=== PATIENT | male | born 1930 | race Two or more races ===

== ENCOUNTER 2016-06-30 13:16 | Inpatient (IN) | payer MEDICARE, OTHER ==
[~2016-06-30] VITALS: Ht 175.3 cm; Wt 63.5 kg
[2016-06-30] VITALS (8 sets, daily range): BP systolic 110–125; BP diastolic 50–73
[~2016-06-30 13:16] MED LIST: ASPIRIN81 MG ORAL; CARVEDILOL3.125 MG ORAL; FLOMAX0.4 MG ORAL; LOPRESSOR25 M1 ORAL; METOPROLOL TART25 MG ORAL; METOPROLOL TART25 MG PO; NITROFURANTOIN100 M2 ORAL; NITROGLYCERIN0.4 MG SL; SIMVASTATIN40 MG PO; SPIRIVA INHALE1 PUF1 INH; SYMBICORT 1601 PUFFS INH
[2016-06-30 13:59] LABS: BASOPHILS % (AUTO) 0.6 % (0.0-2.0); EOSINOPHILS % (AUTO) 1.1 % (0.0-3.0); LYMPHOCYTES % (AUTO) 14.8 % (20.0-45.0); MEAN CORPUSCULAR HEMOGLOBIN 32.5 PG (27.0-31.0); MEAN CORPUSCULAR HGB CONC 32.4 G/DL (32.0-36.0); MEAN CORPUSCULAR VOLUME 100 FL (80-99); MEAN PLATELET VOLUME 7.7 FL (6.5-10.1); MONOCYTES % (AUTO) 4.4 % (1.0-10.0); NEUTROPHILS % (AUTO) 79.1 % (45.0-75.0); PLATELET COUNT 224 K/UL (150-450); RED BLOOD COUNT 4.14 M/UL (4.70-6.10); RED CELL DISTRIBUTION WIDTH 12.8 % (11.6-14.8); WHITE BLOOD COUNT 11.4 K/UL (4.8-10.8)
[2016-06-30] MEDS ORDERED: Morphine Sulfate 2mg/ml Inj IVP ONE (14:15)
[2016-06-30 14:24] LABS: TROPONIN I < 0.30 ng/mL (<=0.30)
[2016-06-30 14:27] LABS: ALANINE AMINOTRANSFERASE 12 U/L (3-41); ANION GAP 16 (5-15); ASPARTATE AMINO TRANSFERASE 41 U/L (5-40); CALCIUM 9.9 mg/dL (8.6-10.2); CARBON DIOXIDE 26 mEQ/L (20-30); CHLORIDE 98 mEQ/L (98-107); CREATININE 1.8 mg/dL (0.7-1.2); HEMOLYSIS 2; SODIUM 140 mEQ/L (135-145); TOTAL PROTEIN 8.1 g/dL (6.6-8.7)
[2016-06-30 14:28] LABS: APPEARANCE,URINE SLIGHTLY CLOUDY; KETONES,URINE NEGATIVE (NEGATIVE); LEUKOCYTE ESTERASE ,URINE 3+ (NEGATIVE); NITRITE,URINE NEGATIVE (NEGATIVE); PH,URINE 7 (4.5-8.0); PROTEIN,URINE 2+ (NEGATIVE); UROBILINOGEN,URINE NORMAL MG/DL (0.0-1.0)
[2016-06-30 14:28] LABS: LIPASE 65 U/L (< 60)
[2016-06-30] MEDS ORDERED: Albuterol ud Inhalation HHN ONE (14:30)
[2016-06-30] MEDS ORDERED: Ipratropium 0.02% Inh Soln 2.5ml UD HHN ONE (14:30)
[2016-06-30 14:37] LABS: BACTERIA,URINE FEW /HPF; SQUAMOUS EPITHELIAL CELL,UR OCCASIONAL /LPF (NONE/OCC); WBC,URINE 30-40 /HPF (0 - 0)
[2016-06-30 14:38] LABS: CKMB 2.7 ng/mL (< 6.7)
[2016-06-30 14:56] LABS: REFLEX LACTIC ACID YES OR NO YES
[2016-06-30] MEDS ORDERED: NS 1000ml 1,900 ML IVLG ONE (15:00)
--- NOTE | 2016-06-30 16:04 | Diagnostic Imaging Report ---
Indication: Abdominal pain Technique: Spiral acquisitions obtained through the abdomen and pelvis. No oral contrast utilized, per emergency room physician request No IV contrast utilized, per referring physician request.. Multiplanar reconstructions were generated. Total dose length product 897 mGycm. CTDIvol(s) 17 mGy. Dose reduction achieved using automated exposure control Comparison: 09/14/2012 Findings: Lack of enteric contrast assessment of the GI tract. There is mild thickening of the wall of the descending and sigmoid colon as well as of the rectum. There is diverticulosis of the ascending colon predominantly. No evidence of diverticulitis. Appendix was visualized previously, questionably if at all visible currently. No findings to suggest acute appendicitis. No small bowel distention. There is questionable mild wall thickening of small bowel loops, however, particularly proximally. No small bowel distention. There is broad-based diastasis and anterior protrusion of the rectus abdominis tendon, not evident previously. No free or loculated intraperitoneal air or fluid is evident. Distal esophagus, stomach, duodenum are unremarkable. Lack of IV contrast limits assessment of the solid organs. The liver demonstrates multiple fluid attenuation cysts, as well as several subcentimeter low-attenuation lesions which are too small to characterize. A calcification is seen in the left hepatic lobe. The gallbladder is distended. No definite wall thickening. There are tiny calculi layering dependently, also reported previously. There is mild ectasia of the extrahepatic bile ducts. This is unchanged from previously. The pancreas, spleen, adrenals are unremarkable. The right kidney demonstrates multiple cysts, the largest in the lower pole measuring 7 cm diameter, as well as multiple subcentimeter low-attenuation lesions which are too small to characterize, most likely represent benign simple cortical cysts. These overall appear larger than on the prior study. No renal or ureteral calculi, hydronephrosis, or hydroureter. The left kidney is surgically absent. The left ureteral stump is somewhat prominent, although less so than on prior study. No retroperitoneal or mesenteric mass or adenopathy. No pelvic mass or adenopathy. The bladder is empty, contains a Nelson catheter. Some air within the bladder likely relates to the Nelson catheterization. There is apparent thickening of the bladder wall, although this is probably an artifact of under distention There is considerable stranding of the fat of the pelvis, the anterior pelvic wall, and bilateral hips. This appears unchanged from the previous exam. 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 There is some atelectasis at the left lung base and elevation of the left hemidiaphragm. Previously reported right basilar lung nodule appears smaller currently. There are 2 faint groundglass opacities in the lower lobe on the highest cuts probably excluded from the prior imaging volume. Pacemaker wires are seen the heart. The heart is borderline enlarged. There are degenerative changes of the lumbar spine.. Impression: Mild thickening of the wall of the descending colon, sigmoid colon, and rectum, suspicious for mild colitis changes, nonspecific as regards etiology Diverticulosis. No evidence of diverticulitis Broad-based diastasis and anterior protrusion of the rectus abdominis tendon without lara hernia, new since the prior study Prior left nephrectomy, also previously described Hepatic cysts. Subcentimeter low-attenuation liver lesions, too small to characterize, most likely benign simple cysts or bile hamartomas. Right renal cysts and right renal low-attenuation lesions which are too small to characterize, most likely benign cortical cysts. No further followup necessary Empty bladder, with a Nelson catheter. Apparent -- bladder wall thickening is most likely artifact of under distention, although cystitis not excludable. 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 Nonspecific. Consider further evaluation with dedicated chest CT if clinically indicated Cholelithiasis. Mild extra hepatic biliary ductal ectasia appears similar to prior exam, likely baseline for this patient. Recommend correlation with liver function tests Other findings as noted, including pacemaker wires, degenerative spondylosis, borderline cardiomegaly, left basilar atelectasis, left lobe liver calcification The CT scanner at [facility] is accredited by the [employer] and the scans are performed using protocols designed to limit radiation exposure to as low as reasonably achievable to attain images of sufficient resolution adequate for diagnostic evaluation.
--- NOTE | 2016-06-30 16:34 | Diagnostic Imaging Report ---
Indication: PAIN Technique: One view of the chest Comparison: 12/19/2013 Findings: Again demonstrated is mild elevation of the left hemidiaphragm and some crowding of the markings at the left lung base. The lungs and pleural spaces are otherwise clear. There is a left chest bifocal pacemaker. The heart is borderline enlarged. Impression: No acute process
[2016-06-30] MEDS ORDERED: Nitroglycerin Subl 0.4mg tab (Bottle Of 25) SL PRN (17:15)
--- NOTE | 2016-06-30 17:36 | Emergency Room Report ---
History of Present Illness General Chief Complaint: Chest Pain Source: Patient, Family Member, EMS Present Illness HPI 85-year-old male presents ED for evaluation. Per EMS patient complained of chest pain which started today. On evaluation patient is pointing to abdomen when asked if he has pain. Pain is all over. Sharp. 09/21. Nonradiating. Denies nausea or vomiting. Patient has some shortness of breath. Denies any fevers or chills. Denies cough. No other aggravating or relieving factors. Denies any other associated symptoms Allergies: Coded Allergies: CEFTRIAXONE (Verified Allergy, Unknown, 03/17/11) Patient History Past Medical History: HTN, OR, CAD, CVA/TIA Past Surgical History: none, pacemaker Pertinent Family History: none Social History: Denies: alcohol use, drug use, smoking Immunizations: UTD Reviewed Nursing Documentation: PMH: Agreed, PSxH: Agreed Nursing Documentation-PMH Hx Cardiac Problems: Yes - MULTIPLE OR, HYPERLIPIDEMIA, Hx Hypertension: Yes Hx Pacemaker: Yes Hx Asthma: No Hx COPD: No Hx Diabetes: No Hx Cancer: Yes - KIDNEY Hx Gastrointestinal Problems: Yes Hx Dialysis: No Hx Neurological Problems: Yes Hx Cerebrovascular Accident: Yes - 2006 Hx Transient Ischemic Attacks: No Hx Dementia: No Hx Alzheimer's Disease: No Hx Parkinson's Disease: No Hx Meningitis: No Hx Encephalitis: No Hx Seizures: No Hx Epilepsy: No Hx Multiple Sclerosis: No Hx Cerebral Palsy: No Hx Amyotrophic Lat Sclerosis: No Hx Guillian-[place] Syndrome: No Hx Paralysis: No Hx Peripheral Neuropathy: No Hx Spinal Cord Injury: No Hx Head Trauma: No Hx Traumatic Brain Injury: No Hx Memory Loss: No Hx Concentration Difficulty: No Hx Speech Problem: No - Farsi speaking Hx Tremors: Yes - hands Hx Dizziness: Yes - at times Hx Syncope: No Hx Headaches: Yes Hx Aphasia: No Hx Dysphasia: No Hx Numbness: No Hx Weakness: Yes - lower extremeties Hx Fatigue: No Hx Neurologic Surgery: No Hx Brain Shunt: No Review of Systems All Other Systems: negative except mentioned in HPI Physical Exam Vital Signs Date Time Temp Pulse Resp B/P Pulse Ox O2 Delivery O2 Flow Rate FiO2 06/30/16 13:25 84 20 101/60 98 Room Air 06/30/16 13:46 99.7 06/30/16 15:00 2.0 06/30/16 15:05 28 Sp02 EP Interpretation: reviewed, normal General Appearance: no apparent distress, alert, GCS 15, non-toxic Head: normocephalic Eyes: bilateral eye PERRL, bilateral eye normal inspection ENT: normal ENT inspection Neck: normal inspection Respiratory: chest non-tender, normal breath sounds, crackles, speaking full sentences Cardiovascular #1: regular rate, rhythm, no edema Gastrointestinal: normal bowel sounds, soft, no guarding, no rebound, distended , tenderness Rectal: deferred Genitourinary: no CVA tenderness Musculoskeletal: normal inspection Neurologic: alert, oriented x3, responsive, motor strength/tone normal, sensory intact, speech normal Psychiatric: normal inspection Skin: normal inspection Lymphatic: normal inspection Medical Decision Making Diagnostic Impression: Primary Impression: ACS (acute coronary syndrome) Additional Impressions: Acute renal failure (ARF) Qualified Codes: N17.9 - Acute kidney failure, unspecified UTI (urinary tract infection) Qualified Codes: N39.0 - Urinary tract infection, site not specified ER Course Hospital Course 85-year-old male presents with reported chest pain, abdominal pain Differential diagnoses include: ACS, OR, bowel obstruction. 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 After initial history and physical I ordered labs, IV fluids, UA, pain medication and CT scan Labs - noted leukocytosis, Hb/Hct stable. BUN/Cr elevated, K 5.0. trop negatrive. UA + bacteria EKG - paced rhythm, no ischemic changes CXR unremarkable CT abdomen and pelvis - diverticulosis, no diverticulitis. no bowel obstruction. IVFs given. Abx given. Case discussed with Dr. Arredondo and he agreed to accept the patient to his service for further care and support I feel this is a highly complex case requiring extensive working including EKG/ Rhythm strip, Xray/CT/US, Blood/urine lab work, repeat exams while in ED, and administration of strong opiates/narcotics for pain control, admission to hospital or close patient follow up. Diagnosis - ACS, ARF, UTI Patient admitted to [facility] in serious condition Labs Test 06/30/16 13:30 06/30/16 14:03 06/30/16 15:10 White Blood Count 11.4 K/UL (4.8-10.8) Red Blood Count 4.14 M/UL (4.70-6.10) Hemoglobin 13.4 G/DL (14.2-18.0) Hematocrit 41.5 % (42.0-52.0) Mean Corpuscular Volume 100 FL (80-99) Mean Corpuscular Hemoglobin 32.5 PG (27.0-31.0) Mean Corpuscular Hemoglobin Concent 32.4 G/DL (32.0-36.0) Red Cell Distribution Width 12.8 % (11.6-14.8) Platelet Count 224 K/UL (150-450) Mean Platelet Volume 7.7 FL (6.5-10.1) Neutrophils (%) (Auto) 79.1 % (45.0-75.0) Lymphocytes (%) (Auto) 14.8 % (20.0-45.0) Monocytes (%) (Auto) 4.4 % (1.0-10.0) Eosinophils (%) (Auto) 1.1 % (0.0-3.0) Basophils (%) (Auto) 0.6 % (0.0-2.0) Sodium Level 140 mEQ/L (135-145) Potassium Level 5.0 mEQ/L (3.4-4.9) Chloride Level 98 mEQ/L (98-107) Carbon Dioxide Level 26 mEQ/L (20-30) Anion Gap 16 (5-15) Blood Urea Nitrogen 37 mg/dL (7-23) Creatinine 1.8 mg/dL (0.7-1.2) Estimat Glomerular Filtration Rate mL/min (>60) Glucose Level 193 mg/dL (74-106) Calcium Level 9.9 mg/dL (8.6-10.2) Total Bilirubin 0.9 mg/dL (0.0-1.2) Aspartate Amino Transf (AST/SGOT) 41 U/L (5-40) Alanine Aminotransferase (ALT/SGPT) 12 U/L (3-41) Alkaline Phosphatase 58 U/L (40-129) Total Creatine Kinase 197 U/L (38-174) Creatine Kinase MB 2.7 ng/mL (< 6.7) Creatine Kinase MB Relative Index 1.3 Troponin I < 0.30 ng/mL (<=0.30) Pro-B-Type Natriuretic Peptide 849 pg/mL (0-450) Total Protein 8.1 g/dL (6.6-8.7) Albumin 4.1 g/dL (3.5-5.2) Globulin 4.0 g/dL Albumin/Globulin Ratio 1.0 (1.0-2.7) Lipase 65 U/L (< 60) Urine Color Pale yellow Urine Appearance Slightly cloudy Urine pH 7 (4.5-8.0) Urine Specific [place] 1.010 (1.005-1.035) Urine Protein 2+ (NEGATIVE) Urine Glucose (UA) Negative (NEGATIVE) Urine Ketones Negative (NEGATIVE) Urine Occult Blood 4+ (NEGATIVE) Urine Nitrite Negative (NEGATIVE) Urine Bilirubin Negative (NEGATIVE) Urine Urobilinogen Normal MG/DL (0.0-1.0) Urine Leukocyte Esterase 3+ (NEGATIVE) Urine RBC 10-15 /HPF (0 - 0) Urine WBC 30-40 /HPF (0 - 0) Urine Squamous Epithelial Cells Occasional /LPF Urine Bacteria Few /HPF (NONE) Lactic Acid Level 2.40 mmol/L (0.66-2.22) 3.50 mmol/L (0.66-2.22) EKG Diagnostic Results Rate: normal Rhythm: other - paced rhythm ST Segments: no acute changes ASA given to the pt in ED: Yes Rhythm Strip Diag. Results EP Interpretation: yes Rhythm: no PVC's, no ectopy Chest X-Ray Diagnostic Results EP Interpretation: No Findings: no consolidation, no effusion, no pneumothorax, no acute cardiopulmonary disease, other - pacemaker Number of Views: 1 CT/MRI/US Diagnostic Results CT/MRI/US Diagnostic Results : Imaging Test Ordered: CT A/P Impression diverticulosis, no diverticulitis. cholelithiasis. no bowel obstruction. Last Vital Signs Date Time Temp Pulse Resp B/P Pulse Ox O2 Delivery O2 Flow Rate FiO2 06/30/16 15:05 60 31 98 Room Air 21 06/30/16 15:05 2.0 06/30/16 15:00 118/52 06/30/16 14:58 99.7 Status: improved Disposition: ADMITTED INPATIENT Condition: Serious Referrals: GIGI ARREDONDO (PCP) ZBIGNIEW FRANCISCO M.D. Jun 30, 2016 17:36
[2016-06-30] MEDS ORDERED: Aspirin Baby 81mg ORAL ONE (17:45)
[2016-06-30] MEDS ORDERED: FOSAMAX70 MG ORAL (19:46)
[2016-06-30] MEDS ORDERED: BETHANECHOL CHL25 MG ORAL (19:49)
[2016-06-30] MEDS ORDERED: SINEMET 25-1001 EAC1 ORAL (19:54)
[2016-06-30] MEDS ORDERED: TIMOPTIC 0.5%1 DRO1 (20:08)
[2016-06-30] MEDS ORDERED: GABAPENTIN100 MG ORAL (20:11)
[2016-06-30] MEDS ORDERED: SIMVASTATIN40 MG ORAL (20:23)
[2016-07-01] VITALS: BP 133/96
[2016-07-01] MEDS: Tamsulosin 0.4mg cap ORAL SCH ×2 (00:03→20:59)
[2016-07-01] MEDS: Atorvastatin 20mg tab ORAL SCH ×2 (00:03→20:59)
[2016-07-01] MEDS: Heparin 5000 units/ml inj SUBQ SCH ×3 (00:04→20:59)
[2016-07-01] MEDS: Metoprolol 25mg tab ORAL SCH ×3 (00:40→20:59)
[2016-07-01 05:34] LABS: BASOPHILS % (AUTO) 0.4 % (0.0-2.0); EOSINOPHILS % (AUTO) 0.1 % (0.0-3.0); LYMPHOCYTES % (AUTO) 12.7 % (20.0-45.0); MEAN CORPUSCULAR HEMOGLOBIN 33.1 PG (27.0-31.0); MEAN CORPUSCULAR HGB CONC 33.4 G/DL (32.0-36.0); MEAN CORPUSCULAR VOLUME 99 FL (80-99); MONOCYTES % (AUTO) 6.5 % (1.0-10.0); NEUTROPHILS % (AUTO) 80.4 % (45.0-75.0); PLATELET COUNT 166 K/UL (150-450); RED BLOOD COUNT 3.56 M/UL (4.70-6.10); RED CELL DISTRIBUTION WIDTH 12.6 % (11.6-14.8); WHITE BLOOD COUNT 11.6 K/UL (4.8-10.8)
[2016-07-01 05:57] LABS: ANION GAP 17 (5-15); CALCIUM 8.5 mg/dL (8.6-10.2); CARBON DIOXIDE 21 mEQ/L (20-30); CHLORIDE 103 mEQ/L (98-107); CREATININE 1.9 mg/dL (0.7-1.2); HEMOLYSIS 8; POTASSIUM 5.1 mEQ/L (3.4-4.9); SODIUM 141 mEQ/L (135-145)
--- NOTE | 2016-07-01 07:29 | History and Physical Report ---
DATE OF ADMISSION: 06/30/2016 CHIEF COMPLAINT: Abdominal pain. HISTORY OF THE PRESENT ILLNESS: This is an 85-year-old [place] male was brought in by paramedics for evaluation of abdominal pain and questionable chest pain that started an hour prior to admission. He denied any shortness of breath, nausea or vomiting. He had low grade fever today but no chills. He was slightly drowsy since this morning. In the emergency room, the patient had a CT of abdomen done that did not show any acute changes. Chest x-ray was done as well that was normal. The patient was started on intravenous fluids and intravenous antibiotics for urinary tract infection in emergency room. ALLERGIES: No known drug allergies except for ceftriaxone. PAST MEDICAL HISTORY: History of hypertension, coronary artery disease, [place], and history of CVA. PAST SURGICAL HISTORY: Pacemaker placement, nephrectomy on one side. SOCIAL HISTORY: No history of drug use or alcohol use. Quit smoking many years ago. FAMILY HISTORY: Noncontributory. REVIEW OF SYSTEMS: Everything is negative except for HPI. PHYSICAL EXAMINATION: VITAL SIGNS: Temperature of 99.7, pulse 84, respirations 20, blood pressure 101/60, and pulse oximetry 98% on room air. GENERAL APPEARANCE: Alert and oriented x3, in no acute distress. HEENT: Normocephalic and normochromic. Extraocular muscles intact. Throat is clear. NECK: Supple. No lymphadenopathy. LUNGS: Clear to auscultation bilaterally. No rales or crackle. CARDIOVASCULAR: Regular rate and rhythm. No murmur. No gallop. GASTROINTESTINAL: Soft. Mild tenderness, generalized. No guarding. Normal bowel sounds. Soft abdomen. GENITOURINARY: No CVA tenderness. EXTREMITIES: No edema, cyanosis, or clubbing. NEUROLOGICAL: Alert and oriented x3 and responds to commands. Cranial nerves II through XII are intact. SKIN: No rash. LABORATORY DATA: WBC 11.4, hemoglobin 13.4, hematocrit 41.5, platelet count 604, neutrophils 79, and lymphocytes 14.7. Sodium 140, potassium 5.0, chloride 98, bicarbonate 26, BUN 37, creatinine 1.8, glucose 193, and calcium 9.9. AST 41, ALT 12, alkaline phosphatase 68, and total creatine kinase 197. Troponin less than 0.3, BNP 849, albumin 4.1, lipase 65, and lactic acid 2.4. Urine showed slightly cloudy yellow urine, +2 protein, +4 occult blood, +3 leukocyte esterase, WBC of 10-40, RBC 10-15, and few bacteria. Chest x-ray was negative with no acute changes. Abdominal CT, which did not show any acute changes, but similar to previous CT scan with chronic changes in the CT. IMPRESSION: 1. Urinary tract infection. 2. Acute kidney injury/acute renal failure. 3. Chronic obstructive pulmonary disease. 4. Generalized weakness. 5. Benign prostatic hypertrophy. 6. Hypertension. 7. Hyperlipidemia. PLAN: 1. The patient will be started on intravenous Levaquin 500 mg daily and urine culture will be followed up in a few days and antibiotic would be tailored to sensitivity by urine culture. 2. Acute kidney injury or insufficiency. The patient was started on intravenous fluids in the emergency room. BNP and BMP will be followed up in the morning. will hold IVF, due to high BNP for now. 3. Hyperkalemia. We will repeat the BMP in the morning. 4. Hypertension. We will continue metoprolol tartrate 25 mg b.i.d. and Flomax 0.4 mg at bedtime. 5. We will continue atorvastatin 20 mg at bedtime and we will also continue inhalers for his chronic obstructive pulmonary disease. The patient will be admitted for minimum of 2 nights stay for the treatment of urinary tract infection. Leopoldo Arredondo M.D. DR: HUMBERTO JOB#: [id number] CC: BRENNEN
[2016-07-01] MEDS ORDERED: Sodium Polystyrene Sulfonate 15gm Powder ORAL ONE (07:30)
[2016-07-01 08:00] VITALS: BP 117/50
[2016-07-01] MEDS: DuoNeb 0.5-3(2.5)mg/3ml neb HHN SCH ×3 (08:00→19:05)
[2016-07-01] MEDS: Aspirin Baby 81mg ORAL SCH (08:51)
[2016-07-01] MEDS ORDERED: Tubing IV Secondary IV ONE (09:49)
[2016-07-01 11:44] VITALS: BP 108/50
[2016-07-01] MEDS ORDERED: Ipratropium 0.02% Inh Soln 2.5ml UD HHN SCH (13:00)
--- NOTE | 2016-07-01 15:26 | Cardiac Electrophysiology PN ---
Subjective Subjective [id number] Objective Last 24 Hour Vital Signs Date Time Temp Pulse Resp B/P Pulse Ox O2 Delivery O2 Flow Rate FiO2 07/01/16 13:50 63 18 98 Nasal Cannula 2.0 28 07/01/16 13:45 64 18 96 Nasal Cannula 2.0 28 07/01/16 12:35 62 07/01/16 11:44 97.7 62 20 108/50 96 Room Air 07/01/16 09:19 63 20 Nasal Cannula 2.0 28 07/01/16 08:51 63 117/50 07/01/16 08:00 61 07/01/16 08:00 97.4 63 18 117/50 96 Nasal Cannula 2.0 07/01/16 07:55 61 18 98 Nasal Cannula 2.0 28 07/01/16 07:50 61 18 96 Nasal Cannula 2.0 28 07/01/16 04:00 62 07/01/16 00:40 62 117/50 07/01/16 00:00 97.8 122 22 133/96 100 Nasal Cannula 2.0 28 07/01/16 00:00 61 06/30/16 22:10 61 21 111/51 100 Room Air 06/30/16 22:10 99.1 61 21 111/51 100 Nasal Cannula 2.0 06/30/16 20:55 99.0 62 22 117/50 100 Nasal Cannula 2.0 06/30/16 18:55 65 20 113/66 100 Nasal Cannula 2.0 06/30/16 18:00 65 21 110/52 100 Nasal Cannula 2.0 06/30/16 17:00 63 16 110/71 100 Nasal Cannula 2.0 06/30/16 16:00 66 23 121/68 100 Nasal Cannula 2.0 Intake and Output 06/30/16 07/01/16 19:00 07:00 Intake Total 2050 ml 240 ml Output Total 100 ml 500 ml Balance 1950 ml -260 ml Intake Oral 240 ml IV Total 2050 ml Output Urine Total 100 ml 500 ml # Bowel Movements 3 Laboratory Tests Test 07/01/16 02:50 White Blood Count 11.6 K/UL (4.8-10.8) H Red Blood Count 3.56 M/UL (4.70-6.10) L Hemoglobin 11.8 G/DL (14.2-18.0) L Hematocrit 35.2 % (42.0-52.0) L Mean Corpuscular Volume 99 FL (80-99) Mean Corpuscular Hemoglobin 33.1 PG (27.0-31.0) H Mean Corpuscular Hemoglobin Concent 33.4 G/DL (32.0-36.0) Red Cell Distribution Width 12.6 % (11.6-14.8) Platelet Count 166 K/UL (150-450) Mean Platelet Volume 7.0 FL (6.5-10.1) Neutrophils (%) (Auto) 80.4 % (45.0-75.0) H Lymphocytes (%) (Auto) 12.7 % (20.0-45.0) L Monocytes (%) (Auto) 6.5 % (1.0-10.0) Eosinophils (%) (Auto) 0.1 % (0.0-3.0) Basophils (%) (Auto) 0.4 % (0.0-2.0) Sodium Level 141 mEQ/L (135-145) Potassium Level 5.1 mEQ/L (3.4-4.9) H Chloride Level 103 mEQ/L (98-107) Carbon Dioxide Level 21 mEQ/L (20-30) Anion Gap 17 (5-15) H Blood Urea Nitrogen 38 mg/dL (7-23) H Creatinine 1.9 mg/dL (0.7-1.2) H Estimat Glomerular Filtration Rate mL/min (>60) Glucose Level 125 mg/dL (74-106) H Calcium Level 8.5 mg/dL (8.6-10.2) L Pro-B-Type Natriuretic Peptide 1238 pg/mL (0-450) H Microbiology Date/Time Source Procedure Growth Status 06/30/16 23:00 Stool Clostridium difficile Toxin Assay - Final Complete 06/30/16 14:03 Straight Cath Urine Culture - Preliminary Gram Negative Bacillus 1 Resulted 06/30/16 14:03 Urine,Clean Catch Urine Culture - Preliminary Gram Negative Bacillus 1 Resulted SEVERINO WELLINGTON Jul 01, 2016 15:26
[2016-07-01 16:04] VITALS: BP 131/52
--- NOTE | 2016-07-01 16:35 | General Progress Note ---
Assessment/Plan Status: stable Assessment/Plan 1. UTI - cont levaquin 500 mg IV daily. follow up urine cx. 2. HTN - cont lopressor 25 mg bid. Echo pending. 3. Chronic kidney Disease 4. COPD - breathing txt 5. Generalized weakness - using wheelchair at home. 6. BPH - cont flomax 0.4 mg one po qhs. 7. Hyperlipidemia - cont lipitor 20 mg one po qhs. Subjective Date patient seen: Jul 01, 2016 Time patient seen: 04:15 Constitutional: Reports: weakness HEENT: Reports: no symptoms Cardiovascular: Reports: no symptoms Respiratory: Reports: no symptoms Gastrointestinal/Abdominal: Reports: no symptoms Genitourinary: Reports: no symptoms Neurologic/Psychiatric: Reports: no symptoms Endocrine: Reports: no symptoms Hematologic/Lymphatic: Reports: no symptoms Allergies: Coded Allergies: CEFTRIAXONE (Verified Allergy, Unknown, 03/17/11) Subjective patient is doing better this morning. no fever or chills. He is fully awake and states when he can go home. No sob or chest pain. Objective Last 24 Hour Vital Signs Date Time Temp Pulse Resp B/P Pulse Ox O2 Delivery O2 Flow Rate FiO2 07/01/16 16:04 99.0 75 20 131/52 95 Room Air 07/01/16 13:50 63 18 98 Nasal Cannula 2.0 28 07/01/16 13:45 64 18 96 Nasal Cannula 2.0 28 07/01/16 12:35 62 07/01/16 11:44 97.7 62 20 108/50 96 Room Air 07/01/16 09:19 63 20 Nasal Cannula 2.0 28 07/01/16 08:51 63 117/50 07/01/16 08:00 61 07/01/16 08:00 97.4 63 18 117/50 96 Nasal Cannula 2.0 07/01/16 07:55 61 18 98 Nasal Cannula 2.0 28 07/01/16 07:50 61 18 96 Nasal Cannula 2.0 28 07/01/16 04:00 62 07/01/16 00:40 62 117/50 07/01/16 00:00 97.8 122 22 133/96 100 Nasal Cannula 2.0 28 07/01/16 00:00 61 06/30/16 22:10 61 21 111/51 100 Room Air 06/30/16 22:10 99.1 61 21 111/51 100 Nasal Cannula 2.0 06/30/16 20:55 99.0 62 22 117/50 100 Nasal Cannula 2.0 06/30/16 18:55 65 20 113/66 100 Nasal Cannula 2.0 06/30/16 18:00 65 21 110/52 100 Nasal Cannula 2.0 06/30/16 17:00 63 16 110/71 100 Nasal Cannula 2.0 Intake and Output 06/30/16 07/01/16 19:00 07:00 Intake Total 2050 ml 240 ml Output Total 100 ml 500 ml Balance 1950 ml -260 ml Intake Oral 240 ml IV Total 2050 ml Output Urine Total 100 ml 500 ml # Bowel Movements 3 Laboratory Tests 07/01/16 02:50: White Blood Count 11.6H, Red Blood Count 3.56L, Hemoglobin 11.8L, Hematocrit 35.2L, Mean Corpuscular Volume 99, Mean Corpuscular Hemoglobin 33.1H, Mean Corpuscular Hemoglobin Concent 33.4, Red Cell Distribution Width 12.6, Platelet Count 166, Mean Platelet Volume 7.0, Neutrophils (%) (Auto) 80.4H, Lymphocytes ( %) (Auto) 12.7L, Monocytes (%) (Auto) 6.5, Eosinophils (%) (Auto) 0.1, Basophils (%) (Auto) 0.4, Sodium Level 141, Potassium Level 5.1H, Chloride Level 103, Carbon Dioxide Level 21, Anion Gap 17H, Blood Urea Nitrogen 38H, Creatinine 1.9H, Estimat Glomerular Filtration Rate , Glucose Level 125H, Calcium Level 8.5L, Pro-B-Type Natriuretic Peptide 1238H Height (Feet): 5 Height (Inches): 9.00 Weight (Pounds): 140 General Appearance: no apparent distress, alert Neck: non-tender, normal alignment, supple Cardiovascular: normal peripheral pulses, normal rate, regular rhythm Respiratory/Chest: chest wall non-tender, lungs clear, normal breath sounds, no respiratory distress Abdomen: normal bowel sounds, non tender, soft, no organomegaly Extremities: normal range of motion, non-tender Edema: no edema noted Arm (L), no edema noted Arm (R), no edema noted Leg (L), no edema noted Leg (R), no edema noted Pedal (L), no edema noted Pedal (R), no edema noted Generalized Neurologic: alert, oriented x 3, responsive Skin: warm/dry Lymphatic: normal anterior cervical (L), normal anterior cervical (R), normal axillary (L), normal axillary (R), normal inguinal (L), normal inguinal (R), normal other, normal posterior cervical (L), normal posterior cervical (R), normal submandibular (L), normal submandibular (R), normal supraclavicular (L), normal supraclavicular (R) GIGI TRINIDAD Jul 01, 2016 16:35
--- NOTE | 2016-07-01 18:35 | Cardiology Report ---
APPROVED REPORT EKG Measurement Heart [id number] [place] 268P [id number] AV sequential pacemaker Abnormal ECG
[2016-07-01 20:00] VITALS: BP 140/56
--- NOTE | 2016-07-01 21:50 | Consultation ---
DATE OF CONSULTATION: 07/01/2016 CARDIOLOGY CONSULTATION CONSULTING PHYSICIAN: Bear Goss M.D. REFERRING PHYSICIAN: Leopoldo Arredondo M.D. REASON FOR CONSULTATION: Management of hypertension and pacemaker, coronary artery disease. HISTORY OF PRESENT ILLNESS: The patient is a very pleasant 85-year-old Filipino gentleman under my cardiology care, who also has history of [employer] pacemaker implantation by me. The patient was brought in by paramedics for abdominal pain and atypical chest pain that started an hour prior to the admission. In the emergency room, CT of the abdomen that showed no acute findings. The chest x-ray was also negative. The patient was found to have urinary tract infection and was started on IV antibiotic and IV fluids. At the time of my evaluation, the patient denies any chest pain or palpitation or shortness of breath. PAST MEDICAL HISTORY: 1. Hypertension. 2. Coronary artery disease and prior myocardial infarction. 3. [employer] permanent pacemaker implantation. 4. History of cerebrovascular accident. 5. Right eye blindness. FAMILY HISTORY: Noncontributory. SOCIAL HISTORY: He lives at home with his , who is very supportive. He does not smoke or drink alcohol. REVIEW OF SYSTEMS: Review of systems was performed that was negative other than what was mentioned in the history of present illness. PHYSICAL EXAMINATION: VITAL SIGNS: Show blood pressure is 108/50, pulse 60, respirations 18, and he is afebrile. HEENT: Right eye blindness. NECK: Show no JVD. LUNGS: Clear. CHEST: Pacemaker in the left subclavian is intact. CARDIOVASCULAR: Shows regular S1 and S2 with no gallop or murmur. ABDOMEN: Soft. EXTREMITIES: No pitting edema. LABORATORY DATA: White count 11.6, hemoglobin 11.8, hematocrit 35.7, and platelet count is 166,000. Sodium is 141, potassium 5.1, BUN 38, creatinine 1.9, and glucose of 125. Lactic acid is 3.5. BNP is 1238. His urinalysis showed 4+ blood, 30 to 40 WBCs. His INR is 1.1. ASSESSMENT AND PLAN: 1. Chest pain. The pain is atypical. Currently, he does not have any chest pain. His first troponin is negative. We will get a second troponin as well. 2. Hypertension. Continue metoprolol 25 mg twice a day. 3. Hyperlipidemia, on Lipitor. 4. Status post [employer] pacemaker that will be interrogated for further evaluation. It is of note his interrogation within the last month in the office also showed normal function. 5. Chronic kidney disease with a creatinine of 1.8. His previous creatinine was 1 in [address] Arredondo. 6. Urinary tract infection, on antibiotic with Levaquin. 7. History of nephrectomy. 8. Right eye blindness. Thank you very much, Dr. Arredondo, for allowing me to participate in the care of this patient. Please do not hesitate to contact me if you have any questions regarding my evaluation. Case was discussed with the patient's at the bedside as well as Dr. Arredondo. Bear Goss M.D. DR: BARBARA JOB#: [id number] CC:
[2016-07-02] VITALS: BP 132/56
[2016-07-02] MEDS: DuoNeb 0.5-3(2.5)mg/3ml neb HHN SCH ×4 (01:10→20:22)
[2016-07-02 04:00] VITALS: BP 132/56
[2016-07-02 08:00] VITALS: BP 124/50
[2016-07-02] MEDS: Aspirin Baby 81mg ORAL SCH (09:50)
[2016-07-02] MEDS: Metoprolol 25mg tab ORAL SCH ×2 (09:50→23:43)
[2016-07-02] MEDS: Heparin 5000 units/ml inj SUBQ SCH ×2 (10:36→23:43)
[2016-07-02 12:00] VITALS: BP 120/55
--- NOTE | 2016-07-02 14:40 | Cardiac Electrophysiology PN ---
Assessment/Plan Assessment/Plan 1. Chest pain. Atypical. Ruled out for [place]. No chest pain. Echo EF 55% 2. Hypertension. Continue metoprolol 25 mg twice a day. 3. Hyperlipidemia, on Lipitor. 4. Status post [employer] pacemaker imlantation with interrogation within the last month in the office also showed normal function. 5. Chronic kidney disease with a creatinine of 1.8. 6. Urinary tract infection, on antibiotic with Levaquin. 7. History of nephrectomy. 8. Right eye blindness. DW and RN Subjective Subjective Comfortable in NAD. On IV antibiotics. In SR occasionally V paced. Objective Last 24 Hour Vital Signs Date Time Temp Pulse Resp B/P Pulse Ox O2 Delivery O2 Flow Rate FiO2 07/02/16 13:09 76 16 99 Nasal Cannula 2.0 28 07/02/16 12:59 76 16 95 Nasal Cannula 2.0 28 07/02/16 12:00 99.0 69 18 120/55 Nasal Cannula 2.0 07/02/16 09:50 77 174/54 07/02/16 08:00 97.2 77 19 124/50 96 Nasal Cannula 07/02/16 07:23 72 18 98 Nasal Cannula 2.0 28 07/02/16 07:15 69 16 Nasal Cannula 2.0 28 07/02/16 07:15 69 16 96 Nasal Cannula 2.0 28 07/02/16 04:00 98.6 77 18 132/56 98 Nasal Cannula 2.0 28 07/02/16 04:00 73 07/02/16 01:12 74 18 98 Nasal Cannula 2.0 28 07/02/16 01:10 73 18 98 Nasal Cannula 2.0 28 07/02/16 00:00 99.0 72 20 132/56 99 Nasal Cannula 2.0 28 07/02/16 00:00 73 07/01/16 20:59 73 140/56 07/01/16 20:00 98.2 73 20 140/56 99 Nasal Cannula 2.0 28 07/01/16 20:00 66 07/01/16 19:09 74 18 Nasal Cannula 2.0 28 07/01/16 19:08 76 18 98 Nasal Cannula 2.0 28 07/01/16 19:07 75 18 94 Nasal Cannula 2.0 28 07/01/16 16:04 99.0 75 20 131/52 95 Room Air Intake and Output 07/01/16 07/02/16 19:00 07:00 Intake Total 540 ml Output Total 450 ml 40 ml Balance 90 ml -40 ml Intake Oral 540 ml Output Urine Total 450 ml 40 ml # Bowel Movements 3 Microbiology Date/Time Source Procedure Growth Status 06/30/16 13:25 Blood Blood Culture - Preliminary NO GROWTH AFTER 24 HOURS Resulted 06/30/16 13:20 Blood Blood Culture - Preliminary NO GROWTH AFTER 24 HOURS Resulted 06/30/16 13:50 Nasal Nares MRSA Culture - Final NO METHICILLIN RESISTANT STAPH AUREUS... Complete 06/30/16 23:00 Stool Clostridium difficile Toxin Assay - Final Complete 06/30/16 14:03 Straight Cath Urine Culture - Final Escherichia Coli Complete 06/30/16 14:03 Urine,Clean Catch Urine Culture - Final Escherichia Coli Complete 06/30/16 13:50 Rectum VRE Culture - Final NO VANCOMYCIN RESISTANT ENTEROCOCCUS ... Complete Objective HEENT: Right eye blindness. NECK: Show no JVD. LUNGS: Clear. CHEST: Pacemaker in the left subclavian is intact. CARDIOVASCULAR: Shows regular S1 and S2 with no gallop or murmur. ABDOMEN: Soft. EXTREMITIES: No pitting edema. SEVERINO WELLINGTON Jul 02, 2016 14:40
[2016-07-02 15:45] VITALS: BP 119/50
--- NOTE | 2016-07-02 17:53 | General Progress Note ---
Assessment/Plan Status: stable Assessment/Plan 1. UTI - cont levaquin 750 mg IV q 48 hrs. D/C planning for tomorrow with oral antibiotic. 2. HTN - cont lopressor 25 mg bid. Echo 55% EF. 3. Chronic kidney Disease - stable. today lab not done yet. 4. COPD - breathing txt prn. 5. Generalized weakness - using wheelchair at home. 6. BPH - cont flomax 0.4 mg one po qhs. 7. Hyperlipidemia - cont lipitor 20 mg one po qhs. 8. Constipation - start fleet enema today. Subjective Date patient seen: Jul 02, 2016 Time patient seen: 05:30 Constitutional: Reports: weakness HEENT: Reports: no symptoms Cardiovascular: Reports: no symptoms Respiratory: Reports: no symptoms Gastrointestinal/Abdominal: Reports: no symptoms Genitourinary: Reports: no symptoms Neurologic/Psychiatric: Reports: no symptoms Endocrine: Reports: no symptoms Hematologic/Lymphatic: Reports: no symptoms Allergies: Coded Allergies: CEFTRIAXONE (Verified Allergy, Unknown, 03/17/11) Subjective patient is doing better this morning. no fever or chills. He is fully awake. He refused blood test this morning and he pulled out his IV line today. No sob or chest pain. Objective Last 24 Hour Vital Signs Date Time Temp Pulse Resp B/P Pulse Ox O2 Delivery O2 Flow Rate FiO2 07/02/16 15:45 99.0 74 20 119/50 97 Nasal Cannula 2.0 07/02/16 13:09 76 16 99 Nasal Cannula 2.0 28 07/02/16 12:59 76 16 95 Nasal Cannula 2.0 28 07/02/16 12:00 99.0 69 18 120/55 Nasal Cannula 2.0 07/02/16 09:50 77 174/54 07/02/16 08:00 97.2 77 19 124/50 96 Nasal Cannula 07/02/16 07:23 72 18 98 Nasal Cannula 2.0 28 07/02/16 07:15 69 16 Nasal Cannula 2.0 28 07/02/16 07:15 69 16 96 Nasal Cannula 2.0 28 07/02/16 04:00 98.6 77 18 132/56 98 Nasal Cannula 2.0 28 07/02/16 04:00 73 07/02/16 01:12 74 18 98 Nasal Cannula 2.0 28 07/02/16 01:10 73 18 98 Nasal Cannula 2.0 28 07/02/16 00:00 99.0 72 20 132/56 99 Nasal Cannula 2.0 28 07/02/16 00:00 73 07/01/16 20:59 73 140/56 07/01/16 20:00 98.2 73 20 140/56 99 Nasal Cannula 2.0 28 07/01/16 20:00 66 07/01/16 19:09 74 18 Nasal Cannula 2.0 28 07/01/16 19:08 76 18 98 Nasal Cannula 2.0 28 07/01/16 19:07 75 18 94 Nasal Cannula 2.0 28 Intake and Output 07/01/16 07/02/16 19:00 07:00 Intake Total 540 ml Output Total 450 ml 40 ml Balance 90 ml -40 ml Intake Oral 540 ml Output Urine Total 450 ml 40 ml # Bowel Movements 3 Height (Feet): 5 Height (Inches): 9.00 Weight (Pounds): 140 General Appearance: no apparent distress Neck: non-tender, supple Cardiovascular: normal peripheral pulses, normal rate, regular rhythm Respiratory/Chest: chest wall non-tender, lungs clear, normal breath sounds Abdomen: normal bowel sounds, non tender, soft Extremities: normal range of motion, non-tender Edema: no edema noted Arm (L), no edema noted Arm (R), no edema noted Leg (L), no edema noted Leg (R), no edema noted Pedal (L), no edema noted Pedal (R), no edema noted Generalized Neurologic: alert, responsive, motor weakness Skin: warm/dry Lymphatic: normal anterior cervical (L), normal anterior cervical (R), normal axillary (L), normal axillary (R), normal inguinal (L), normal inguinal (R), normal other, normal posterior cervical (L), normal posterior cervical (R), normal submandibular (L), normal submandibular (R), normal supraclavicular (L), normal supraclavicular (R) GIGI TRINIDAD Jul 02, 2016 17:53
[2016-07-02 20:00] VITALS: BP 121/52
[2016-07-02] MEDS: Tamsulosin 0.4mg cap ORAL SCH (23:43)
[2016-07-02] MEDS: Atorvastatin 20mg tab ORAL SCH (23:43)
[2016-07-03 00:01] VITALS: BP 117/50
[2016-07-03] MEDS: DuoNeb 0.5-3(2.5)mg/3ml neb HHN SCH ×4 (01:47→19:14)
[2016-07-03 03:58] VITALS: BP 104/57
[2016-07-03 08:02] LABS: BASOPHILS % (AUTO) 0.4 % (0.0-2.0); EOSINOPHILS % (AUTO) 1.5 % (0.0-3.0); LYMPHOCYTES % (AUTO) 14.3 % (20.0-45.0); MEAN CORPUSCULAR HEMOGLOBIN 32.6 PG (27.0-31.0); MEAN CORPUSCULAR HGB CONC 32.9 G/DL (32.0-36.0); MEAN CORPUSCULAR VOLUME 99 FL (80-99); MEAN PLATELET VOLUME 6.7 FL (6.5-10.1); MONOCYTES % (AUTO) 5.7 % (1.0-10.0); PLATELET COUNT 144 K/UL (150-450); RED BLOOD COUNT 3.22 M/UL (4.70-6.10); RED CELL DISTRIBUTION WIDTH 12.4 % (11.6-14.8); WHITE BLOOD COUNT 6.6 K/UL (4.8-10.8)
[2016-07-03 08:05] VITALS: BP 119/49
[2016-07-03] MEDS: Metoprolol 25mg tab ORAL SCH (08:14)
[2016-07-03] MEDS: Heparin 5000 units/ml inj SUBQ SCH (08:14)
[2016-07-03] MEDS: Aspirin Baby 81mg ORAL SCH (08:14)
[2016-07-03 08:21] LABS: ANION GAP 15 (5-15); CALCIUM 9.2 mg/dL (8.6-10.2); CARBON DIOXIDE 26 mEQ/L (20-30); CHLORIDE 102 mEQ/L (98-107); CREATININE 1.9 mg/dL (0.7-1.2); HEMOLYSIS 2; POTASSIUM 3.6 mEQ/L (3.4-4.9); SODIUM 143 mEQ/L (135-145)
[2016-07-03 09:36] LABS: TROPONIN I < 0.30 ng/mL (<=0.30)
[2016-07-03 12:05] VITALS: BP 111/47
--- NOTE | 2016-07-03 14:18 | Cardiac Electrophysiology PN ---
Assessment/Plan Assessment/Plan 1. Atypical chest pain. Ruled out for [place]. No chest pain. Echo EF 55% 2. Hypertension. Continue metoprolol 25 mg twice a day. 3. Hyperlipidemia, on Lipitor. 4. Status post [employer] pacemaker implantation with nl fx by interrogation within the last month 5. Chronic kidney disease with a creatinine of 1.8. 6. Urinary tract infection, on antibiotic with Levaquin. 7. History of nephrectomy. 8. Right eye blindness. SEAMUS RN DC planning in progress Subjective Subjective Comfortable in NAD with no chest pain or SOB. In SR mostly Objective Last 24 Hour Vital Signs Date Time Temp Pulse Resp B/P Pulse Ox O2 Delivery O2 Flow Rate FiO2 07/03/16 13:41 70 18 98 Nasal Cannula 2.0 28 07/03/16 13:33 28 07/03/16 13:31 72 18 98 Nasal Cannula 2.0 28 07/03/16 12:05 97.7 63 20 111/47 98 Nasal Cannula 2.0 07/03/16 12:00 68 07/03/16 08:51 69 18 98 Nasal Cannula 2.0 28 07/03/16 08:33 64 19 98 Nasal Cannula 2.0 28 07/03/16 08:33 28 07/03/16 08:14 66 119/49 07/03/16 08:05 97.9 66 20 119/49 99 Nasal Cannula 2.0 07/03/16 08:00 62 07/03/16 04:00 70 07/03/16 03:58 98.3 69 20 104/57 98 Nasal Cannula 2.0 07/03/16 02:03 67 18 98 Nasal Cannula 2.0 28 07/03/16 01:52 28 07/03/16 01:52 65 20 96 Nasal Cannula 2.0 28 07/03/16 00:01 98.8 75 19 117/50 96 Nasal Cannula 2.0 07/03/16 00:00 75 07/02/16 23:43 79 121/52 07/02/16 20:31 79 18 98 Nasal Cannula 2.0 28 07/02/16 20:21 77 18 97 Nasal Cannula 2.0 28 07/02/16 20:21 28 07/02/16 20:00 98.7 76 18 121/52 98 Nasal Cannula 2.0 07/02/16 20:00 73 07/02/16 15:45 99.0 74 20 119/50 97 Nasal Cannula 2.0 Intake and Output 07/02/16 07/03/16 19:00 07:00 Intake Total 600 ml Output Total 600 ml 1900 ml Balance 0 ml -1900 ml Intake Oral 360 ml Other 240 ml Output Urine Total 600 ml 1900 ml # Bowel Movements 1 Laboratory Tests Test 07/03/16 05:40 White Blood Count 6.6 K/UL (4.8-10.8) Red Blood Count 3.22 M/UL (4.70-6.10) L Hemoglobin 10.5 G/DL (14.2-18.0) L Hematocrit 31.9 % (42.0-52.0) L Mean Corpuscular Volume 99 FL (80-99) Mean Corpuscular Hemoglobin 32.6 PG (27.0-31.0) H Mean Corpuscular Hemoglobin Concent 32.9 G/DL (32.0-36.0) Red Cell Distribution Width 12.4 % (11.6-14.8) Platelet Count 144 K/UL (150-450) L Mean Platelet Volume 6.7 FL (6.5-10.1) Neutrophils (%) (Auto) 78.0 % (45.0-75.0) H Lymphocytes (%) (Auto) 14.3 % (20.0-45.0) L Monocytes (%) (Auto) 5.7 % (1.0-10.0) Eosinophils (%) (Auto) 1.5 % (0.0-3.0) Basophils (%) (Auto) 0.4 % (0.0-2.0) Sodium Level 143 mEQ/L (135-145) Potassium Level 3.6 mEQ/L (3.4-4.9) Chloride Level 102 mEQ/L (98-107) Carbon Dioxide Level 26 mEQ/L (20-30) Anion Gap 15 (5-15) Blood Urea Nitrogen 30 mg/dL (7-23) H Creatinine 1.9 mg/dL (0.7-1.2) H Estimat Glomerular Filtration Rate mL/min (>60) Glucose Level 126 mg/dL (74-106) H Calcium Level 9.2 mg/dL (8.6-10.2) Troponin I < 0.30 ng/mL (<=0.30) Microbiology Date/Time Source Procedure Growth Status 06/30/16 23:00 Stool Clostridium difficile Toxin Assay - Final Complete Objective HEENT: Right eye blindness. NECK: Show no JVD. LUNGS: Clear. CHEST: Pacemaker in the left subclavian is intact. CARDIOVASCULAR: Shows regular S1 and S2 with no gallop or murmur. ABDOMEN: Soft. EXTREMITIES: No pitting edema. SEVERINO WELLINGTON Jul 03, 2016 14:18
[2016-07-03 16:08] VITALS: BP 110/50
[2016-07-03] MEDS ORDERED: LEVAQUIN750 MG ORAL (16:28)
--- NOTE | 2016-07-03 16:40 | General Progress Note ---
Assessment/Plan Status: stable Assessment/Plan 1. UTI - improved. cont levaquin 750 mg po q 48 hrs x 3 days. D/C home today. 2. HTN - cont lopressor 25 mg bid. Echo 55% EF. 3. Chronic kidney Disease - stable. 4. COPD - breathing txt prn. 5. Generalized weakness - using wheelchair at home. 6. BPH - cont flomax 0.4 mg one po qhs. 7. Hyperlipidemia - cont lipitor 20 mg one po qhs. 8. Constipation - improved. Subjective Date patient seen: Jul 03, 2016 Time patient seen: 04:00 Constitutional: Reports: weakness HEENT: Reports: no symptoms Cardiovascular: Reports: no symptoms Respiratory: Reports: no symptoms Gastrointestinal/Abdominal: Reports: no symptoms Genitourinary: Reports: no symptoms Neurologic/Psychiatric: Reports: no symptoms Endocrine: Reports: no symptoms Hematologic/Lymphatic: Reports: no symptoms Allergies: Coded Allergies: CEFTRIAXONE (Verified Allergy, Unknown, 03/17/11) Subjective patient is doing better and he wants to go home. No fever or chills. He is fully awake. No sob or chest pain. Objective Last 24 Hour Vital Signs Date Time Temp Pulse Resp B/P Pulse Ox O2 Delivery O2 Flow Rate FiO2 07/03/16 16:08 98.2 87 20 110/50 97 Nasal Cannula 2.0 07/03/16 13:41 70 18 98 Nasal Cannula 2.0 28 07/03/16 13:33 28 07/03/16 13:31 72 18 98 Nasal Cannula 2.0 28 07/03/16 12:05 97.7 63 20 111/47 98 Nasal Cannula 2.0 07/03/16 12:00 68 07/03/16 08:51 69 18 98 Nasal Cannula 2.0 28 07/03/16 08:33 64 19 98 Nasal Cannula 2.0 28 07/03/16 08:33 28 07/03/16 08:14 66 119/49 07/03/16 08:05 97.9 66 20 119/49 99 Nasal Cannula 2.0 07/03/16 08:00 62 07/03/16 04:00 70 07/03/16 03:58 98.3 69 20 104/57 98 Nasal Cannula 2.0 07/03/16 02:03 67 18 98 Nasal Cannula 2.0 28 07/03/16 01:52 28 07/03/16 01:52 65 20 96 Nasal Cannula 2.0 28 07/03/16 00:01 98.8 75 19 117/50 96 Nasal Cannula 2.0 07/03/16 00:00 75 07/02/16 23:43 79 121/52 07/02/16 20:31 79 18 98 Nasal Cannula 2.0 28 07/02/16 20:21 77 18 97 Nasal Cannula 2.0 28 07/02/16 20:21 28 07/02/16 20:00 98.7 76 18 121/52 98 Nasal Cannula 2.0 07/02/16 20:00 73 Intake and Output 07/02/16 07/03/16 19:00 07:00 Intake Total 600 ml Output Total 600 ml 1900 ml Balance 0 ml -1900 ml Intake Oral 360 ml Other 240 ml Output Urine Total 600 ml 1900 ml # Bowel Movements 1 Laboratory Tests 07/03/16 05:40: White Blood Count 6.6, Red Blood Count 3.22L, Hemoglobin 10.5L, Hematocrit 31.9L , Mean Corpuscular Volume 99, Mean Corpuscular Hemoglobin 32.6H, Mean Corpuscular Hemoglobin Concent 32.9, Red Cell Distribution Width 12.4, Platelet Count 144L, Mean Platelet Volume 6.7, Neutrophils (%) (Auto) 78.0H, Lymphocytes (%) (Auto) 14.3L, Monocytes (%) (Auto) 5.7, Eosinophils (%) (Auto) 1.5, Basophils (%) (Auto) 0.4, Sodium Level 143, Potassium Level 3.6, Chloride Level 102, Carbon Dioxide Level 26, Anion Gap 15, Blood Urea Nitrogen 30H, Creatinine 1.9H, Estimat Glomerular Filtration Rate , Glucose Level 126H, Calcium Level 9.2 , Troponin I < 0.30 Height (Feet): 5 Height (Inches): 9.00 Weight (Pounds): 140 General Appearance: no apparent distress EENT: normal ENT inspection Neck: non-tender, normal alignment, supple Cardiovascular: normal peripheral pulses, normal rate, regular rhythm Respiratory/Chest: chest wall non-tender, lungs clear, normal breath sounds, no respiratory distress Abdomen: normal bowel sounds, non tender, soft, no organomegaly Extremities: non-tender, normal inspection Edema: no edema noted Arm (L), no edema noted Arm (R), no edema noted Leg (L), no edema noted Leg (R), no edema noted Pedal (L), no edema noted Pedal (R), no edema noted Generalized Neurologic: alert, oriented x 3, responsive Skin: warm/dry Lymphatic: normal anterior cervical (L), normal anterior cervical (R), normal axillary (L), normal axillary (R), normal inguinal (L), normal inguinal (R), normal other, normal posterior cervical (L), normal posterior cervical (R), normal submandibular (L), normal submandibular (R), normal supraclavicular (L), normal supraclavicular (R) GIGI TRINIDAD Jul 03, 2016 16:40
--- NOTE | 2016-07-04 05:18 | Discharge Summary ---
DATE OF ADMISSION: 06/30/2016 DATE OF DISCHARGE: 07/03/2016 HOSPITAL COURSE: This is an 85-year-old Tristanian male who was brought in by paramedics for complaint of abdominal pain and questionable chest pain prior to admission. The patient received IV Levaquin 750 mg q.o.d. for 2 doses. The patient responded well to the treatment [place] [address] to 6000. The patient originally was drowsy the day prior to admission and improved with the IV antibiotics. The patient was also seen by his clutch specialist, Dr. Goss and echo was done and the cardiac enzymes were done and any myocardial infarction was ruled out. The patient's ejection fraction was 55% by echo. He also has a history of chronic kidney disease and will be followed up as outpatient for that. He has been bed bound and has been on the wheelchair at home and the patient prefers to go back home and does not want to go to the longterm at this time. The patient will be discharged home with marketing operations assistant and I will see the patient in about a week. DISCHARGE DIAGNOSIS: 1. Urinary tract infection. 2. Chronic kidney disease. 3. Chronic obstructive pulmonary disease. 4. Generalized weakness. 5. Benign prostatic hypertrophy. 6. Hypertension. 7. Hyperlipidemia. 8. Hyperkalemia, resolved. DISCHARGE MEDICATIONS: 1. Levofloxacin 750 mg 1 every two days for 3 doses. 2. Fosamax 70 mg weekly. 3. Aspirin 81 mg daily. 4. Bethanechol 25 mg twice a day. 5. Symbicort 1 puff b.i.d. 6. Sinemet 1 twice a day. 7. Gabapentin 100 mg daily. 8. Metoprolol 25 mg b.i.d. 9. Zocor 40 mg nightly. 10. Flomax 0.4 mg nightly. 11. Timolol eye drops, use as directed. DISPOSITION: The patient will be discharged back home and I will see the patient within 1 week at home. Leopoldo Arredondo M.D. DRRic [place] JOB#: [id number] CC:
--- NOTE | 2016-07-05 07:59 | Cardiology Report ---
APPROVED REPORT EXAM: Two-dimensional and M-mode echocardiogram with Doppler and color Doppler. INDICATION Congestive Heart Failure M-Mode DIMENSIONS IVSd1.4 (0.7-1.1cm)Left Atrium (MM)3.7 (1.6-4.0cm) LVDd4.8 (3.5-5.6cm)Aortic Root2.6 (2.0-3.7cm) PWd0.9 (0.7-1.1cm)Aortic Cusp Exc.1.9 (1.5-2.0cm) LVDs3.4 (2.5-4.0cm) PWs1.3 cm Normal left ventricular chamber size, systolic function and wall motion. Left ventricular ejection fraction estimated to be 55 %. Mild left ventricular hypertrophy. Trace pericardial effusion. Large pleural effusion. All other cardiac chamber sizes are within normal limits. Mild focal aortic valve sclerosis with adequate cusp excursion. Mildly thickened mitral valve leaflets with normal excursion. Mild mitral annulus and aortic root calcification. Pulmonic valve not well visualized. Normal tricuspid valve structure. A color flow and spectral Doppler study was performed and revealed: Trace aortic regurgitation. Moderate mitral regurgitation. Mitral diastolic velocities suggest reduced left ventricular relaxation (Grade I). Trace tricuspid regurgitation. Tricuspid systolic velocities suggests peak right ventricular systolic pressure of 37 mmHg, consistent with mild pulmonary hypertension. Trace pulmonic regurgitation present.
== END 2016-07-03 20:25 | disposition home health service (06) | DRG 690 ==
LOC: EDBD 13:16 → EMR 14:25 → 2W 15:20 → EDBEDREQ 20:50 → 2E 07-01 10:25
DX: N39.0 Urinary tract infection, site not specified (principal); N17.9 Acute kidney failure, unspecified; J44.9 Chronic obstructive pulmonary disease, unspecified; E87.5 Hyperkalemia; N40.0 Benign prostatic hyperplasia without lower urinary tract symptoms; I12.9 Hypertensive chronic kidney disease with stage 1 through stage 4 chronic kidney disease, or unspecified chronic kidney disease; N18.9 Chronic kidney disease, unspecified; R53.1 Weakness; E78.5 Hyperlipidemia, unspecified; I25.10 Atherosclerotic heart disease of native coronary artery without angina pectoris; I25.2 Old myocardial infarction; Z86.73 Personal history of transient ischemic attack (TIA), and cerebral infarction without residual deficits; Z95.0 Presence of cardiac pacemaker; Z90.5 Acquired absence of kidney; H54.41 Blindness, right eye, normal vision left eye; Z88.1 Allergy status to other antibiotic agents; R07.89 Other chest pain
CPT/HCPCS: 36415; 71010; 74176; 80048; 80053; 81003; 82550; 82553; 83605; 83690; 83880; 84484; 85025; 87040; 87081; 87086; 87181; 87493; 93005; 93306; 94640; 94664; J7620